=== PATIENT | female | born 1955 | race Two or more races ===

== ENCOUNTER 2019-01-05 13:00 | Inpatient (IN) | payer OTHER ==
[~2019-01-05] VITALS: Ht 152.4 cm; Wt 77.6 kg
[2019-01-05] MEDS ORDERED: CYMBALTA60 MG PO (16:45)
[2019-01-05] MEDS ORDERED: CLONAZEPAM0.5 M1 PO (16:46)
[2019-01-05] MEDS ORDERED: LAMICTAL200 MG PO (16:46)
[2019-01-05] MEDS ORDERED: WELLBUTRIN SR200 MG PO (16:46)
[2019-01-05] MEDS ORDERED: AMBIEN10 MG PO (16:47)
[2019-01-05] MEDS ORDERED: SPIRONOLACTONE25 MG PO (16:48)
[2019-01-05] MEDS ORDERED: OLANZAPINE10 MG PO (16:48)
[2019-01-05] MEDS ORDERED: LOTREL 10-40 M1 EACH PO (16:49)
[2019-01-05] MEDS ORDERED: SIMVASTATIN10 MG PO (16:49)
[2019-01-05] MEDS ORDERED: HYDRALAZINE HCL50 MG PO (16:49)
[2019-01-05] MEDS ORDERED: METFORMIN HCL500 MG PO (16:49)
[2019-01-05] MEDS ORDERED: TRAMADOL HCL50 MG PO (16:50)
[2019-01-05] MEDS ORDERED: ACETAMINOPHEN325 MG PO (16:50)
[2019-01-16] MEDS ORDERED: INTEGRA PLUS C1 EACH PO (08:24)
[2019-01-16] MEDS ORDERED: BACTRIM DS TAB1 EACH PO (08:24)
[2019-01-16] MEDS ORDERED: OXYC1TAB9 PO (08:24)
[2019-01-16] MEDS ORDERED: XARELTO10 MG PO (08:24)
== END 2019-01-17 14:50 | DRG 470 ==
LOC: SURH 01-12 06:15 → O/R 01-12 06:15 → SURG 01-12 11:00 → SURH 01-12 15:11
PROVIDERS: ADMIT Orthopaedic Surgery Sports Medicine
PROC: 0SRD0J9 Replacement of Left Knee Joint with Synthetic Substitute, Cemented, Open Approach (ICD-10-PCS; principal; 2019-01-12 11:00)
PROC: 30233N1 Transfusion of Nonautologous Red Blood Cells into Peripheral Vein, Percutaneous Approach (ICD-10-PCS; 2019-01-16)
DX: M17.12 Unilateral primary osteoarthritis, left knee (principal); F31.89 Other bipolar disorder; D62 Acute posthemorrhagic anemia; I11.9 Hypertensive heart disease without heart failure; Z96.652 Presence of left artificial knee joint; F41.1 Generalized anxiety disorder; R50.82 Postprocedural fever; E78.00 Pure hypercholesterolemia, unspecified

== ENCOUNTER 2022-02-21 10:00 | Inpatient (IN) | payer OTHER ==
[~2022-02-21] VITALS: Ht 152.4 cm; Wt 78.0 kg
[~2022-02-21 10:00] MED LIST: ACETAMINOPHEN325 MG PO; AMBIEN10 MG PO; BACTRIM DS TAB1 EACH PO; CLONAZEPAM0.5 M1 PO; CYMBALTA60 MG PO; HYDRALAZINE HCL50 MG PO; INTEGRA PLUS C1 EACH PO; LAMICTAL200 MG PO; LOTREL 10-40 M1 EACH PO; METFORMIN HCL500 MG PO; OLANZAPINE10 MG PO; OXYC1TAB9 PO; SIMVASTATIN10 MG PO; SPIRONOLACTONE25 MG PO; TRAMADOL HCL50 MG PO; WELLBUTRIN SR200 MG PO; XARELTO10 MG PO
[2022-02-21] MEDS ORDERED: CALCIUM PO (14:12)
[2022-02-27] MEDS ORDERED: UBRELVY100 MG (08:51)
[2022-02-27] MEDS ORDERED: PROPRANOLOL HCL80 MG (08:51)
[2022-02-27] MEDS ORDERED: OLANZAPINE10 MG (08:51)
[2022-02-27] MEDS ORDERED: GABAPENTIN300 M2 (08:51)
[2022-02-27] MEDS ORDERED: NURTEC ODT75 MG (08:52)
[2022-02-27] MEDS ORDERED: AMLODIPINE-ATO1 EAC2 (08:52)
[2022-02-27] MEDS ORDERED: SYNTHROID75 MCG (08:52)
[2022-02-27] MEDS ORDERED: AIMOVIG AU140 MG/1 M (08:52)
[2022-02-27] MEDS ORDERED: BUMETANIDE1 MG (08:52)
[2022-02-27] MEDS ORDERED: TRAMADOL HCL50 MG (08:52)
[2022-02-27] MEDS ORDERED: JANUMET 50-5001 EACH (08:53)
[2022-02-27] MEDS ORDERED: RESTASIS1 EACH (08:53)
[2022-02-27] MEDS ORDERED: BOTOX200 UNIT (08:53)
[2022-02-27] MEDS ORDERED: CLOTRIMAZOLE-BE15 G1 (08:53)
[2022-02-27] MEDS ORDERED: CALCIUM500 M1 (08:54)
[2022-02-28] MEDS ORDERED: XARELTO10 MG PO (07:36)
[2022-02-28] MEDS ORDERED: INTEGRA PLUS C1 EACH PO (07:36)
[2022-02-28] MEDS ORDERED: OXYC1TAB9 PO (07:36)
[2022-02-28] MEDS ORDERED: BACTRIM DS TAB1 EACH PO (07:36)
== END 2022-03-01 18:50 | DRG 470 ==
LOC: SURG 02-26 05:44 → O/R 02-26 05:44 → SURG 02-26 08:30
PROVIDERS: ADMIT Orthopaedic Surgery Sports Medicine; ATTEND Orthopaedic Surgery Sports Medicine
PROC: 0SRC0J9 Replacement of Right Knee Joint with Synthetic Substitute, Cemented, Open Approach (ICD-10-PCS; principal; 2022-02-26 08:30)
DX: M17.11 Unilateral primary osteoarthritis, right knee (principal); I10 Essential (primary) hypertension; E78.49 Other hyperlipidemia; E03.9 Hypothyroidism, unspecified; Z20.822 Contact with and (suspected) exposure to COVID-19; Z96.653 Presence of artificial knee joint, bilateral

== ENCOUNTER 2024-06-11 07:30 | Inpatient (IN) | payer OTHER ==
[~2024-06-11] VITALS: Ht 152.4 cm; Wt 78.0 kg
[~2024-06-11 07:30] MED LIST changes: +AIMOVIG AU140 MG/1 M; +AMLODIPINE-ATO1 EAC2; +BOTOX200 UNIT; +BUMETANIDE1 MG; +CALCIUM PO; +CALCIUM500 M1; +CLOTRIMAZOLE-BE15 G1; +GABAPENTIN300 M2; +JANUMET 50-5001 EACH; +NURTEC ODT75 MG; +OLANZAPINE10 MG; +PROPRANOLOL HCL80 MG; +RESTASIS1 EACH; +SYNTHROID75 MCG; +TRAMADOL HCL50 MG; +UBRELVY100 MG
[2024-06-11 08:55] LABS: HEMATOCRIT 39.7 % (36.0-45.00); HEMOGLOBIN 13.2 g/dL (12.0-15.00); MEAN CELL VOLUME 86.3 fL (80.00-100.00); MEAN CORPUSCULAR HEMOGLOBIN 28.7 pg (27.00-32.0); MEAN CORPUSCULAR HGB CONC 33.2 g/dl (32.0-36.0); PLATELET COUNT 337 K/uL (150-450); RED CELL DISTRIBUTION WIDTH 15.4 % (11.5-14.5)
[2024-06-11 09:03] LABS: PH,URINE 6.5 (5.0-8.0); URINE APPEARANCE Clear; URINE BILIRRUBIN Negative (NEGATIVE); URINE BLOOD Negative; URINE COLOR Yellow; URINE GLUCOSE Negative (NEGATIVE); URINE KETONE Negative (NEGATIVE); URINE LEUKOCYTE Negative; URINE NITRATE Negative; URINE PROTEIN Negative (NEGATIVE); URINE UROBILINOGEN 0.2 E.U./dl
[2024-06-11 09:07] LABS: URINE BACTERIA 15.1 uL (0.0-1933); URINE EPITHELIAL CELLS 2.9 uL (0.0-38.8); URINE RBC 8.6 uL (0.0-20.8); URINE WBC 2.4 uL (0.0-23.2)
[2024-06-11 09:41] LABS: PARTIAL THROMBOPLASTIN TIME 27.9 SECONDS (22.0-34.0); PROTHROMBIN TIME 10.9 SECONDS (9.0-11.5)
[2024-06-11 09:47] LABS: ALBUMIN 4.2 gm/dL (3.4-5.0); BILIRUBIN TOTAL 0.36 mg/dL (0.3-1.2); CREATININE SERUM 0.72 mg/dL (0.55-1.02); GFR 80.08; GLOBULINA 3.4 G/DL (2.4-3.5); POTASSIUM 3.62 mEq/L (3.5-5.1); TOTAL PROTEIN 7.6 gm/dL (6.4-8.2)
[2024-06-11 10:40] LABS: RH POSITIVE
[2024-06-22] MEDS ORDERED: TRANEXAMIC ACID 100MG/1ML (1000MG) AMPUL IV ONE ×2 (08:45)
[2024-06-22] MEDS ORDERED: MORPHINE SULFATE 4 MG/ML VIAL IV ONE ×3 (08:45→12:00)
[2024-06-22] MEDS ORDERED: BUPIVACAINE HCL/PF 0.25% 50 ML VIAL IJ ONE (08:45)
[2024-06-22] MEDS ORDERED: LIDOCAINE HCL 1%/EPINEPHRINE 20ML VIAL IJ ONE (08:45)
[2024-06-22] MEDS ORDERED: VANCOMYCIN HCL 1,000 MG VIAL IV ONE (08:45)
[2024-06-22] MEDS ORDERED: SODIUM CHLORIDE 0.45 % 1,000 ML IV SCH (11:15)
[2024-06-22] MEDS ORDERED: ONDANSETRON HCL 2 MG/ML VIAL IV PRN (11:15)
[2024-06-22] MEDS ORDERED: MORPHINE SULFATE 2 MG/ML CARTRIDGE IV ONE (11:15)
[2024-06-22] MEDS ORDERED: MORPHINE SULFATE 4 MG/ML CARTRIDGE IV PRN (11:15)
[2024-06-22 12:36] LABS: HEMATOCRIT 26.7 % (36.0-45.00); RED BLOOD COUNT 3.07 M/uL (4.00-6.00)
[2024-06-22] MEDS ORDERED: hydrALAZINE HCL 50 MG TABLET PO SCH (13:00)
[2024-06-22 16:46] VITALS: BP 172/79; O2SAT 95
[2024-06-22] MEDS ORDERED: SIMVASTATIN 10 MG TABLET PO SCH (17:00)
[2024-06-22] MEDS ORDERED: VANCOMYCIN HCL 1,000 MG VIAL IV SCH (21:00)
[2024-06-23 00:55] VITALS: BP 147/77; O2SAT 94
[2024-06-23] MEDS ORDERED: LEVOTHYROXINE SODIUM 75 MCG TABLET PO SCH (06:00)
[2024-06-23 07:20] LABS: HEMOGLOBIN 13.1 g/dL (12.0-15.00); MEAN CELL VOLUME 86.9 fL (80.00-100.00); MEAN CORPUSCULAR HEMOGLOBIN 28.4 pg (27.00-32.0); MEAN CORPUSCULAR HGB CONC 32.7 g/dl (32.0-36.0); PLATELET COUNT 295 K/uL (150-450); RED CELL DISTRIBUTION WIDTH 15.6 % (11.5-14.5)
[2024-06-23 08:00] VITALS: BP 159/79; O2SAT 96
[2024-06-23] MEDS ORDERED: INTEGRA PLUS C1 EACH PO (08:12)
[2024-06-23] MEDS ORDERED: Septra Ds Tablet PO (08:12)
[2024-06-23] MEDS ORDERED: ACETAMINOPHEN-1 EAC2 PO (08:14)
[2024-06-23] MEDS ORDERED: ACETAMINOPHEN 325 MG TABLET PO PRN (08:15)
[2024-06-23] MEDS ORDERED: PROPRANOLOL HCL 80 MG TABLET PO SCH (09:00)
[2024-06-23] MEDS ORDERED: SPIRONOLACTONE 25 MG TABLET PO SCH (09:00)
[2024-06-23] MEDS ORDERED: AMLODIPINE BESYLATE 10 MG TABLET PO SCH (09:00)
[2024-06-23] MEDS ORDERED: IRON FUM,PS/FOLIC/BCOMP,C NO.9 1 CAP CAPSULE PO SCH (09:00)
[2024-06-23] MEDS ORDERED: RIVAROXABAN 10 MG TAB PO SCH (09:00)
[2024-06-23] MEDS ORDERED: SULFAMETHOXAZOLE/TRIMETHOPRIM DS 1 TAB PO SCH (09:00)
[2024-06-23] MEDS ORDERED: BACITRACIN 28.35 GM OINT.TUBE TOP SCH (09:00)
== END 2024-06-23 13:22 | disposition home or self-care (01) | DRG 483 ==
LOC: SURH 06-22 05:22 → O/R 06-22 05:22 → SURH 06-22 07:00
PROVIDERS: ADMIT Orthopaedic Surgery Sports Medicine; ATTEND Orthopaedic Surgery Sports Medicine
PROC: 0LN20ZZ Release Left Shoulder Tendon, Open Approach (ICD-10-PCS; 2024-06-22)
PROC: 0PUD0JZ Supplement Left Humeral Head with Synthetic Substitute, Open Approach (ICD-10-PCS; 2024-06-22)
PROC: 0RRK00Z Replacement of Left Shoulder Joint with Reverse Ball and Socket Synthetic Substitute, Open Approach (ICD-10-PCS; principal; 2024-06-22 07:00)
DX: M19.012 Primary osteoarthritis, left shoulder (principal); M75.22 Bicipital tendinitis, left shoulder; M75.112 Incomplete rotator cuff tear or rupture of left shoulder, not specified as traumatic; Z20.822 Contact with and (suspected) exposure to COVID-19